=== PATIENT | male | born 2000 | race American Indian/Alaskan Native ===

== ENCOUNTER 2022-04-04 13:44 | Emergency (ER) | payer MEDICAID, OTHER ==
[2022-04-04 13:58] VITALS: BP 135/73; PULSE 77
[2022-04-04] MEDS ORDERED: Orphenadrine 60 MG/2 ML Inj IM ONE (14:53)
[2022-04-04] MEDS ORDERED: Ketorolac 30 MG/ML SDV IM ONE (14:53)
== END 2022-04-04 16:12 | disposition home or self-care (01) ==
LOC: DL.ED 13:44
DX: M54.50 Low back pain, unspecified (principal); J02.9 Acute pharyngitis, unspecified
CPT/HCPCS: 36415; 72100; 80053; 81001; 85025; 87081; 87430; 96372; 99283; 99283-25; J1885; J2360

== ENCOUNTER 2023-06-20 04:56 | Emergency (ER) | payer MEDICAID ==
[2023-06-20 05:26] VITALS: BP 131/92; PULSE 56
== END 2023-06-20 05:50 | disposition home or self-care (01) ==
LOC: DL.ED 04:56
DX: G44.009 Cluster headache syndrome, unspecified, not intractable (principal)
CPT/HCPCS: 99282; 99283